=== PATIENT | male | born 1980 | race Hispanic/Latino ===

== ENCOUNTER 2019-03-12 11:07 | Emergency (ER) | payer OTHER ==
[2019-03-12] MEDS ORDERED: KETOROLAC TROMETHAMINE 60 MG/2 ML VIAL ONE (11:34)
== END 2019-03-12 12:05 | disposition home or self-care (01) ==
LOC: EDH 11:07
DX: M43.6 Torticollis (principal); Z72.0 Tobacco use
CPT/HCPCS: 96372; 99283; J1885

== ENCOUNTER 2019-05-07 15:24 | Emergency (ER) | payer OTHER ==
[2019-05-07] MEDS ORDERED: ACETAMINOPHEN EXTRA STRENGTH 500 MG TABLET ONE (16:23)
[2019-05-07] MEDS ORDERED: ONDANSETRON ODT 4 MG TAB ONE (16:23)
[2019-05-07 17:12] LABS: RAPID GROUP A STREP NEGATIVE (NEGATIVE)
== END 2019-05-07 17:31 | disposition home or self-care (01) ==
LOC: EDH 15:24
DX: J10.1 Influenza due to other identified influenza virus with other respiratory manifestations (principal); M19.90 Unspecified osteoarthritis, unspecified site
CPT/HCPCS: 87804; 87880

== ENCOUNTER 2020-10-17 06:29 | Day surgery (SDC) | payer OTHER ==
[2020-10-15 14:14] LABS: BASOPHILS % (AUTO) 0.7 % (0.0-5.0); EOSINOPHILS % (AUTO) 1.4 % (0.0-8.0); LYMPHOCYTES % (AUTO) 33.1 % (21.0-51.0); MEAN CORPUSCULAR HEMOGLOBIN 30.1 pg (27.0-33.0); MEAN CORPUSCULAR HGB CONC 34.6 g/dL (32.0-36.0); MEAN CORPUSCULAR VOLUME 87.1 fL (79-99); MONOCYTES % (AUTO) 7.1 % (3.0-13.0); NEUTROPHILS % (AUTO) 57.7 % (40.0-77.0); PLATELET COUNT (AUTO) 156 K/uL (130-400); RED BLOOD CELL COUNT(AUTO) 4.48 MIL/uL (4.50-6.20); RED CELL DISTRIBUTION WIDTH 12.1 % (11.0-15.5); WHITE BLOOD COUNT (AUTO) 4.4 K/uL (4.8-10.8)
[2020-10-15 14:27] LABS: INR 1.07 (0.85-1.15); PROTHROMBIN TIME 11.6 SEC (9.6-11.6)
[2020-10-15 14:28] LABS: PARTIAL THROMBOPLASTIN TIME 30.5 SEC (26.3-35.5)
[2020-10-16 12:26] VITALS: BP 144/88
[2020-10-17] VITALS (20 sets, daily range): BP systolic 131–146; BP diastolic 75–92
[~2020-10-17] VITALS: Ht 182.9 cm; Wt 74.3 kg
[~2020-10-17 06:29] MED LIST: CEFAZOLIN SODIUM 1 GM VIAL IVP SCH
[2020-10-17] MEDS ORDERED: LACTATED RINGERS 1000ML 1,000 ML IV ONE (07:05)
[2020-10-17] MEDS ORDERED: LIDOCAINE PF 100MG/5ML (2%) SYRINGE 5ML ONE ×2 (07:13→11:05)
[2020-10-17] MEDS ORDERED: GENTAMICIN SULFATE 80 MG/2 ML VIAL ONE (07:13)
[2020-10-17] MEDS ORDERED: SUCCINYLCHOLINE CHLORIDE 20 MG/ML 10 ML VIAL ONE (07:13)
[2020-10-17] MEDS ORDERED: CEFAZOLIN SODIUM 1 GM VIAL ONE (07:14)
[2020-10-17] MEDS ORDERED: BACITRACIN 28.4 GM OINT TP ONE (07:14)
[2020-10-17] MEDS ORDERED: LIDOCAINE 1%-EPI 1:100,000 20 ML VIAL IJ ONE (07:14)
[2020-10-17] MEDS ORDERED: FENTANYL CITRATE PF 50 MCG/1 ML 2ML VIAL ONE (07:15)
[2020-10-17] MEDS ORDERED: PROPOFOL 10 MG/ML 20ML VIAL IV ONE (07:15)
[2020-10-17] MEDS ORDERED: BUPIVACAINE/EPI/PF 0.5% 30ML VIAL IJ ONE (07:15)
[2020-10-17] MEDS ORDERED: OXYMETAZOLINE HCL SPRAY 15 ML BOTTLE ONE (07:36)
[2020-10-17] MEDS ORDERED: GLYCOPYRROLATE 1 MG/5 ML SYRINGE ONE (08:00)
[2020-10-17] MEDS ORDERED: DEXAMETHASONE SOD PHOSPHATE 10MG/ML 1ML VIAL ONE (08:16)
[2020-10-17] MEDS ORDERED: DEXAMETHASONE SOD PHOSPHATE 4 MG/ML 1ML VIAL ONE (08:18)
[2020-10-17] MEDS ORDERED: MEPERIDINE-PF 25 MG/ML SYG ONE (10:29)
[2020-10-17] MEDS ORDERED: LABETALOL 20MG VIAL IV ONE (10:37)
[2020-10-17] MEDS ORDERED: ONDANSETRON 4MG INJ ONE (12:47)
[2020-10-17] MEDS ORDERED: METOCLOPRAMIDE 10 MG/2 ML VIAL ONE (12:47)
== END 2020-10-17 13:50 | disposition home or self-care (01) ==
LOC: DAH 06:29
PROVIDERS: ATTEND Otolaryngology Plastic Surgery within the Head & Neck
DX: J34.2 Deviated nasal septum (principal); J34.89 Other specified disorders of nose and nasal sinuses; M95.0 Acquired deformity of nose; J34.3 Hypertrophy of nasal turbinates; Z79.01 Long term (current) use of anticoagulants; Z79.899 Other long term (current) drug therapy
CPT/HCPCS: 30420; 30930; 31256; 36415; 85025; 85610; 85730; 87635; A4215; A4221; A4222; A4223; A4570 ×2; A4649 ×2; A4663; A4930; A6260; A6402; C9803; J0330; J0690 ×2; J1100 ×2; J1580; J2001 ×2; J2175; J2405; J2704; J2765; J3010; J3490 ×4; J7120